=== PATIENT | female | born 1945 | race Caucasian/White ===

== ENCOUNTER 2022-01-31 06:44 | Day surgery (SDC) | payer MEDICARE, OTHER ==
[~2022-01-31 06:44] MED LIST: CYCLOPENTOLATE 1% OPHTH DROPS 2 ML ONE; KETOROLAC 0.45% OPHTH DROPS ONE; PHENYLEPHRINE 2.5% OPHTH 2 ML DROPS ONE; PROPARACAINE 0.5% OPHTH DROPS 15 ML ONE
[2022-01-31] MEDS ORDERED: BSS/LIDOCAINE/EPINEPHRINE 1 ML VIAL ONE (07:04)
[2022-01-31] MEDS ORDERED: TRIAMCIN/MOXIFLOX OPHTHALMIC 0.6 ML VIAL IO ONE ×2 (07:04→08:20)
[2022-01-31] MEDS ORDERED: EPINEPHrine 1 MG/ML AMP ONE (07:04)
[2022-01-31] MEDS ORDERED: BRIMONIDINE 0.2% OPHTH DROPS 5 ML ONE (07:04)
[2022-01-31] MEDS ORDERED: TIMOLOL 0.5% OPHTH DROPS ONE (07:04)
[2022-01-31] MEDS ORDERED: LACTATED RINGERS 1,000 ML IV ONE (07:09)
--- NOTE | 2022-01-31 07:42 | ANESTHESIA ---
Pre-Anesthesia VS, & Labs - Diagnosis R cataract - Procedure R PhacIOL Vital Signs: Temp Pulse Resp BP Pulse Ox 36.6. C 67 20 149/67 H 96 01/31/22 07:09 01/31/22 07:09 01/31/22 07:09 01/31/22 07:09 01/31/22 07:09 Height: 5 ft 4 in Weight (kg): 115.6 kg Body Mass Index: 43.7 BMI Classification: Morbidly Obese - NPO >8 hours - Is Patient ?: No - Lab Results Current Lab Results: Laboratory Tests 01/31/22 07:14: POC Whole Bld Glucose 154 H Home Medications and Allergies Home Medications: Ambulatory Orders Aspirin [Vazalore] 01/30/22 Atorvastatin [Lipitor] 01/30/22 Benazepril HCl [Lotensin] 01/30/22 Citalopram [CeleXA] 40 mg PO DAILY 01/30/22 Fluticasone [Flonase] 01/30/22 Gabapentin [Neurontin] 01/30/22 Insulin 70/30 Human [NovoLIN] 01/30/22 Insulin Glargine [Lantus Solostar] 01/30/22 hydroCHLOROthiazide [Hydrochlorothiazide] 01/30/22 metFORMIN [Glucophage] 01/30/22 Aspirin [Vazalore] 01/30/22 Atorvastatin [Lipitor] 01/30/22 Benazepril HCl [Lotensin] 01/30/22 Citalopram [CeleXA] 40 mg PO DAILY 01/30/22 Fluticasone [Flonase] 01/30/22 Gabapentin [Neurontin] 01/30/22 Insulin 70/30 Human [NovoLIN] 01/30/22 Insulin Glargine [Lantus Solostar] 01/30/22 hydroCHLOROthiazide [Hydrochlorothiazide] 01/30/22 metFORMIN [Glucophage] 01/30/22 Allergies/Adverse Reactions: Allergies Allergy/AdvReac Type Severity Reaction Status Date / Time iodine Allergy Anaphylaxis Verified 01/30/22 11:23 iv contrast dye Allergy Anaphylaxis Uncoded 01/30/22 11:36 Anes History & Medical History - Anesthetic History Anesthesia Complications: reports: No previous complications Family history of Anesthesia Complications: Denies Family history of Malignant Hyperthermia: Denies - Medical History Cardiovascular: reports: Hypertension, High cholesterol, Murmur, Arrhythmia Pulmonary: reports: Asthma, Shortness of breath, Sleep apnea Gastrointestinal: reports: Colon polyps Urinary: reports: Renal insuffiency, Kidney stones Musculoskeletal: reports: Osteoarthritis, Chronic back pain Endocrine/Autoimmune: reports: Type 2 diabetes Skin: reports: None - Surgical History Gynecologic: reports: Hysterectomy Orthopedic: reports: Rotator cuff repair, Arthroscopic surgery, Other Exam General: Alert, Oriented x3, Cooperative Dental: Other (edentulous) Mouth Openin Fingerbreadth Neck Mobility: Reduced Mallampati classification: III Thyromental Distance: less than 4 cm Respiratory: Decreased breath sounds Plan Anesthesia Type: MAC Consent for Procedure(s) Verified and Reviewed: Yes Code Status: Attempt Resuscitation ASA classification: 3-Severe systemic disease Is this case an emergency?: No
[2022-01-31] MEDS ORDERED: fentaNYL 100 MCG/2 ML VIAL ONE (07:48)
[2022-01-31] MEDS ORDERED: MIDAZOLAM 2 MG/2 ML VIAL ONE (07:48)
[2022-01-31] MEDS ORDERED: BRIMONIDINE 0.2% OPHTH DROPS 5 ML OPTH ONE (08:19)
[2022-01-31] MEDS ORDERED: EPINEPHrine 1 MG/ML AMP IR ONE (08:19)
[2022-01-31] MEDS ORDERED: BSS/LIDOCAINE/EPINEPHRINE 1 ML SYRINGE IO ONE (08:20)
[2022-01-31] MEDS ORDERED: TIMOLOL 0.5% OPHTH DROPS OPTH ONE (08:20)
[2022-01-31] MEDS ORDERED: PROPARACAINE 0.5% OPHTH DROPS 15 ML EACHEYE ONE (08:21)
[2022-01-31] MEDS ORDERED: VANCOMYCIN OPHTHALMI 8MG/0.8ML 8 MG/0.8 ML SYRINGE IO ONE (08:21)
[2022-01-31] MEDS ORDERED: LACTATED RINGERS 850 ML IV ONE ×3 (08:34)
--- NOTE | 2022-01-31 08:34 | OPERATIVE REPORT ---
Operative Report - Other Other Information/Narrative: Date of Surgery: 01/31/22 Preop Dx: Visually significant cataract right eye. This was the first cataract surgery. Postop Dx: Same Procedure: Phacoemulsification with posterior chamber intraocular lens implant right eye Surgeon: Dr. Moises Peoples Anesthesia: Monitored anesthesia care Complications: None Operative Indications: This is a 77-year-old F with progressive vision loss in the right eye due to 3+ nuclear sclerotic and 3+ cortical cataract. Best corrected visual acuity was 20/50 with glare to 20/250 vision in the right eye. Indications for surgery were: - Overall decrease in vision - Difficulty seeing words on a computer screen - Difficulty reading - Difficulty seeing words, closed captions, or game scores on TV - Difficulty seeing street signs - Difficulty driving in low light or at night - Difficulty driving at night because of headlights from other vehicles - Difficulty with glare or bright lights in any situation The patient was consented at length concerning the risks and benefits of cataract surgery after which the patient expressed a desire to proceed with surgery. Operative Procedure: The patient was taken into OR#3 and placed under monitored anesthesia care. A surgical time-out was conducted confirming correct patient, correct procedure, and correct surgical site. The patient was given topical anesthesia and then prepped and draped in the usual sterile fashion. The eye was entered at the 6 and 3 oclock positions. Intracameral Shugarcaine was injected into the anterior chamber followed by a dispersive viscoelastic. A continuous-tear curvilinear capsulorhexis was performed. The nucleus was hydrodissected and phacoemulsified. The cortex was evacuated using automated infusion and aspiration. A cohesive viscoelastic was injected into the capsular bag and a 23.0 diopter intraocular lens was inserted into the bag. Infusion and aspiration were used to evacuate the viscoelastic materials from the eye. The wounds were hydrated and the eye inflated to physiologic pressure using balanced salt solution. Approximately 0.25ml of a mixture of triamcinolone and moxifloxacin was injected trans-sclerally into the vitreous in the inferotemporal quadrant using a 30 gauge cannula. An additional 0.55ml of a mixture of triamcinolone, moxifloxacin, and vancomycin was injected subconjunctivally in the superior quadrant for infection and inflammation prophylaxis. Wound integrity was checked with Weck-Tonja sponges. The patient was taken from the operating room in good condition and given post-op instructions.
[2022-01-31 09:34] VITALS: BP 120/64
--- NOTE | 2022-01-31 12:54 | ANESTHESIA POST OP EVALUATION ---
Anesthesia Post Eval - Post Anesthesia Eval Vitals: Last Vital Signs Temp 36.4 C L 01/31/22 09:20 Pulse 68 01/31/22 09:20 Resp 14 01/31/22 09:20 BP 120/64 01/31/22 09:20 Pulse Ox 93 01/31/22 09:20 CV Function Including HR & BP: Stable Pain Control: Satisfactory Nausea & Vomiting: Negative Mental Status: Baseline Respiratory Status: Airway Patent Hydration Status: Satisfactory Anesthesia Complications: None
== END 2022-01-31 06:45 | disposition home or self-care (01) ==
LOC: SDS 06:44
PROVIDERS: ATTEND Ophthalmology
DX: E11.36 Type 2 diabetes mellitus with diabetic cataract (principal); H25.811 Combined forms of age-related cataract, right eye; E11.22 Type 2 diabetes mellitus with diabetic chronic kidney disease; I12.9 Hypertensive chronic kidney disease with stage 1 through stage 4 chronic kidney disease, or unspecified chronic kidney disease; N18.30 Chronic kidney disease, stage 3 unspecified; Z79.4 Long term (current) use of insulin; Z79.84 Long term (current) use of oral hypoglycemic drugs; E66.01 Morbid (severe) obesity due to excess calories; Z68.41 Body mass index [BMI] 40.0-44.9, adult; G47.33 Obstructive sleep apnea (adult) (pediatric); F41.9 Anxiety disorder, unspecified
CPT/HCPCS: 66984; A9270; J3490; J7120

== ENCOUNTER 2022-04-11 07:50 | Day surgery (SDC) | payer MEDICARE ==
[~2022-04-11 07:50] MED LIST changes: +BRIMONIDINE 0.2% OPHTH DROPS 5 ML ONE; +BSS/LIDOCAINE/EPINEPHRINE 1 ML VIAL ONE; +EPINEPHrine 1 MG/ML AMP ONE; +TIMOLOL 0.5% OPHTH DROPS ONE; +TRIAMCIN/MOXIFLOX OPHTHALMIC 0.6 ML VIAL IO ONE
[2022-04-11] MEDS ORDERED: LACTATED RINGERS 1,000 ML IV ONE (08:21)
--- NOTE | 2022-04-11 08:31 | ANESTHESIA ---
Pre-Anesthesia VS, & Labs - Diagnosis cataract L eye - Procedure left cataract extraction with lens implant Vital Signs: Temp Pulse Resp BP Pulse Ox 36.6 C 66 18 142/69 H 100 04/11/22 08:00 04/11/22 08:00 04/11/22 08:00 04/11/22 08:00 04/11/22 08:00 Height: 5 ft 4 in Weight (kg): 113.4 kg Body Mass Index: 42.9 BMI Classification: Morbidly Obese - NPO >8 hours - Is Patient ?: No Home Medications and Allergies Aspirin [Vazalore] 81 mg PO DAILY 01/30/22 Atorvastatin [Lipitor] 20 mg PO DAILY 01/30/22 Benazepril HCl [Lotensin] 10 mg PO DAILY 01/30/22 Citalopram [CeleXA] 40 mg PO DAILY 01/30/22 Fluticasone [Flonase] 2 spray .ROUTE BID PRN 01/30/22 Gabapentin [Neurontin] 100 mg PO DAILY 01/30/22 Insulin 70/30 Human [NovoLIN] 10 units SQ DAILY 01/30/22 Insulin Glargine [Lantus Solostar] 100 unit SQ DAILY 01/30/22 hydroCHLOROthiazide [Hydrochlorothiazide] 50 mg PO DAILY 01/30/22 metFORMIN [Glucophage] 500 mg PO TID 01/30/22 Allergies/Adverse Reactions: Allergies Allergy/AdvReac Type Severity Reaction Status Date / Time iodine Allergy Anaphylaxis Verified 01/30/22 11:23 iv contrast dye Allergy Anaphylaxis Uncoded 01/30/22 11:36 Anes History & Medical History - Anesthetic History Anesthesia Complications: reports: No previous complications Family history of Anesthesia Complications: Denies Family history of Malignant Hyperthermia: Denies - Medical History Cardiovascular: reports: Hypertension, High cholesterol, Arrhythmia (right bbb) Pulmonary: reports: Asthma (last inhaler use > 3 months), Shortness of breath, Sleep apnea, CPAP use Gastrointestinal: reports: Colon polyps Urinary: reports: Renal insuffiency, Kidney stones Neuro: reports: Tremors (hands) Musculoskeletal: reports: Osteoarthritis, Gout (previous), Chronic back pain Endocrine/Autoimmune: reports: Type 2 diabetes Blood Disorders: reports: None Skin: reports: None Smoking Status: Never smoker Psychosocial: reports: Depression History of Cancer?: No - Surgical History Eyes Ears Nose Throat (EENT): reports: Cataracts (right cataract removed in January 2022) Urologic: reports: Ureterolithotomy (stones) Gynecologic: reports: Hysterectomy Orthopedic: reports: Rotator cuff repair, Arthroscopic surgery, Carpal Tunnel surgery, Other (bunion removal, meniscus removal left knee) Exam General: Alert, Oriented x3, Cooperative, No acute distress Mouth Openin Fingerbreadth Neck Mobility: Normal Mallampati classification: IV Thyromental Distance: less than 4 cm Respiratory: Lungs clear, Normal breath sounds, No respiratory distress, No accessory muscle use Cardiovascular: Regular rate Mental/Cognitive Status: Alert/Oriented X3, Normal for patient Cognitive Status: Within normal limits Plan Anesthesia Type: MAC Consent for Procedure(s) Verified and Reviewed: Yes Code Status: Attempt Resuscitation ASA classification: 3-Severe systemic disease Is this case an emergency?: No
[2022-04-11] MEDS ORDERED: MIDAZOLAM 2 MG/2 ML VIAL ONE (09:10)
[2022-04-11] MEDS ORDERED: BRIMONIDINE 0.2% OPHTH DROPS 5 ML OPTH ONE (09:10)
[2022-04-11] MEDS ORDERED: TIMOLOL 0.5% OPHTH DROPS OPTH ONE (09:11)
[2022-04-11] MEDS ORDERED: EPINEPHrine 1 MG/ML AMP IR ONE (09:11)
[2022-04-11] MEDS ORDERED: BSS/LIDOCAINE/EPINEPHRINE 1 ML SYRINGE IO ONE (09:11)
[2022-04-11] MEDS ORDERED: VANCOMYCIN OPHTH (TOPICAL) 10 MG/ML SYRINGE TOP ONE (09:12)
[2022-04-11] MEDS ORDERED: TRIAMCIN/MOXIFLOX OPHTHALMIC 0.6 ML VIAL IO ONE ×2 (09:12→12:36)
[2022-04-11] MEDS ORDERED: PROPARACAINE 0.5% OPHTH DROPS 15 ML EACHEYE ONE (09:12)
[2022-04-11] MEDS ORDERED: fentaNYL 100 MCG/2 ML VIAL ONE (09:14)
[2022-04-11] MEDS ORDERED: LACTATED RINGERS 850 ML IV ONE (09:21)
--- NOTE | 2022-04-11 09:33 | OPERATIVE REPORT ---
Operative Report - Other Other Information/Narrative: Date of Surgery: 04/11/22 Preop Dx: Visually significant cataract left eye. Cataract surgery was performed in the right eye on . Postop Dx: Same Procedure: Phacoemulsification with posterior chamber intraocular lens implant left eye Surgeon: Dr. Moises Peoples Anesthesia: Monitored anesthesia care Complications: None Operative Indications: This is a 77-year-old F with progressive vision loss in the left eye due to 2+ nuclear sclerotic, 3+ cortical, and vacuolar cataract. Best corrected visual acuity was 20/30 with glare to 20/200 vision in the left eye. Indications for surgery were: - Difficulty seeing words on a computer screen - Difficulty reading - Difficulty seeing words, closed captions, or game scores on TV - Difficulty seeing street signs - Difficulty driving in low light or at night - Difficulty driving at night because of headlights from other vehicles - Difficulty with glare or bright lights in any situation The patient was consented at length concerning the risks and benefits of cataract surgery after which the patient expressed a desire to proceed with surgery. Operative Procedure: The patient was taken into OR#3 and placed under monitored anesthesia care. A surgical time-out was conducted confirming correct patient, correct procedure, and correct surgical site. The patient was given topical anesthesia and then prepped and draped in the usual sterile fashion. The eye was entered at the 6 and 3 oclock positions. Intracameral Shugarcaine was i njected into the anterior chamber followed by a dispersive viscoelastic. A continuous-tear curvilinear capsulorhexis was performed. The nucleus was hydrodissected and phacoemulsified. The cortex was evacuated using automated infusion and aspiration. A cohesive viscoelastic was injected into the capsular bag and a 23.0 diopter intraocular lens was inserted into the bag. Infusion and aspiration were used to evacuate the viscoelastic materials from the eye. The wounds were hydrated and the eye inflated to physiologic pressure using balanced salt solution. Approximately 0.25ml of a mixture of triamcinolone and moxifloxacin was injected trans-sclerally into the vitreous in the inferotemporal quadrant using a 30 gauge cannula. An additional 0.55ml of a mixture of triamcinolone and moxifloxacin was injected subconjunctivally in the superior quadrant for infection and inflammation prophylaxis. Wound integrity was checked with Weck-Tonja sponges. The patient was taken from the operating room in good condition and given post-op instructions.
[2022-04-11 09:40] VITALS: BP 122/55
--- NOTE | 2022-04-11 09:42 | ANESTHESIA POST OP EVALUATION ---
Anesthesia Post Eval - Post Anesthesia Eval Vitals: Last Vital Signs Temp 36.6 C 04/11/22 09:39 Pulse 80 04/11/22 09:39 Resp 16 04/11/22 09:39 BP 122/55 L 04/11/22 09:39 Pulse Ox 96 04/11/22 09:39 CV Function Including HR & BP: Stable Pain Control: Satisfactory Nausea & Vomiting: Negative Mental Status: Baseline Respiratory Status: Airway Patent Hydration Status: Satisfactory Anesthesia Complications: None
== END 2022-04-11 07:51 | disposition home or self-care (01) ==
LOC: SDS 07:50
PROVIDERS: ATTEND Ophthalmology
DX: E11.36 Type 2 diabetes mellitus with diabetic cataract (principal); H25.812 Combined forms of age-related cataract, left eye; Z98.41 Cataract extraction status, right eye; J45.909 Unspecified asthma, uncomplicated; I12.9 Hypertensive chronic kidney disease with stage 1 through stage 4 chronic kidney disease, or unspecified chronic kidney disease; N18.30 Chronic kidney disease, stage 3 unspecified; E11.22 Type 2 diabetes mellitus with diabetic chronic kidney disease; G47.30 Sleep apnea, unspecified; E66.01 Morbid (severe) obesity due to excess calories; Z68.41 Body mass index [BMI] 40.0-44.9, adult; Z79.4 Long term (current) use of insulin
CPT/HCPCS: 66984; A9270; J3490; J7120